=== PATIENT | female | born 1965 | race Asian ===

== ENCOUNTER 2018-11-13 11:01 | Day surgery (SDC) | payer OTHER ==
[2018-11-12 12:30] LABS: BASOPHIL % 0.9 % (0-2); PLATELET COUNT 258 x10^3mcL (130-400); RED CELL DISTRIBUTION WIDTH 13.6 % (11.5-14.5)
[2018-11-12 12:40] LABS: CALCIUM 8.9 mg/dL (8.5-10.1); CARBON DIOXIDE 25.5 mmol/L (21-32); CREATININE SERUM 1.2 mg/dL (0.6-1.0); POTASSIUM SERUM 4.1 mmol/L (3.5-5.1)
[~2018-11-13] VITALS: Ht 154.9 cm; Wt 81.6 kg
[2018-11-13 11:21] VITALS: BP 140/72
[2018-11-13 17:19] VITALS: BP 116/58
== END 2018-11-13 17:15 | disposition home or self-care (01) ==
LOC: DS 11:01 → OR 13:00 → DS 17:15
PROVIDERS: Urology
DX: N20.1 Calculus of ureter (principal); E66.3 Overweight; J45.909 Unspecified asthma, uncomplicated; G47.33 Obstructive sleep apnea (adult) (pediatric); I25.10 Atherosclerotic heart disease of native coronary artery without angina pectoris; I12.9 Hypertensive chronic kidney disease with stage 1 through stage 4 chronic kidney disease, or unspecified chronic kidney disease; E11.22 Type 2 diabetes mellitus with diabetic chronic kidney disease; N18.9 Chronic kidney disease, unspecified; D64.9 Anemia, unspecified; F03.90 Unspecified dementia, unspecified severity, without behavioral disturbance, psychotic disturbance, mood disturbance, and anxiety; Z86.73 Personal history of transient ischemic attack (TIA), and cerebral infarction without residual deficits; Z88.7 Allergy status to serum and vaccine; Z79.82 Long term (current) use of aspirin; Z79.899 Other long term (current) drug therapy; Z78.0 Asymptomatic menopausal state; Z68.34 Body mass index [BMI] 34.0-34.9, adult
CPT/HCPCS: C1769; C2625; J0690; J2250; J2704; J3010; J7120; Q0092; Q9958